=== PATIENT | male | born 1980 | race Caucasian/White ===

== ENCOUNTER 2016-12-25 13:21 | Emergency (ER) | payer BC ==
[2016-12-25] MEDS ORDERED: DILAUDID 1 MG/ML AMP ONE (13:43)
[2016-12-25] MEDS ORDERED: ONDANSETRON 4 MG VIAL ONE ×2 (13:43→15:12)
[2016-12-25] MEDS ORDERED: SODIUM CHLORIDE 0.9% 1,000 ML ONE (13:44)
[2016-12-25] MEDS ORDERED: KETOROLAC 30 MG/ML VIAL ONE (13:44)
[2016-12-25] MEDS ORDERED: MORPHINE 4 MG/ML SYR ONE (15:12)
== END 2016-12-25 16:20 | disposition home or self-care (01) ==
LOC: ER 13:21
DX: N13.2 Hydronephrosis with renal and ureteral calculous obstruction (principal)
CPT/HCPCS: 36415; 74176; 80053; 83690; 85025; 96361; 96374; 96375